=== PATIENT | female | born 1960 | race African-American/Black ===

== ENCOUNTER 2021-09-27 17:55 | Emergency (ER) | payer BC, MEDICARE ==
--- NOTE | 2021-09-27 18:59 | PHYS DOC ---
Adult General Physical Exam Physical Exam EKG EKG [] Radiology/Procedures Radiology/Procedures [] Heart Score C/O Chest Pain: N/A Risk Factors: Risk Factors: DM, Current or recent (<one month) smoker, HTN, HLP, family history of CAD, obesity. Risk Scores: Risk Factors: DM, Current or recent (<one month) smoker, HTN, HLP, family history of CAD, obesity. Course & Med Decision Making Course & Med Decision Making Left without being seen [] Woody Disclaimer Dragon Disclaimer This electronic medical record was generated, in whole or in part, using a voice recognition dictation system. Departure Departure: Disposition: LEFT WITHOUT BEING SEEN SYEDA COTTON MD Sep 27, 2021 18:59
== END 2021-09-27 19:10 | disposition left against medical advice (07) ==
LOC: ER 17:55
DX: R22.40 Localized swelling, mass and lump, unspecified lower limb (principal); Z53.21 Procedure and treatment not carried out due to patient leaving prior to being seen by health care provider